=== PATIENT | female | born 1975 | race Caucasian/White ===

== ENCOUNTER 2025-02-24 05:11 | Emergency (ER) | payer OTHER, SELFPAY ==
[2025-02-24] VITALS (8 sets, daily range): BP systolic 107–125; BP diastolic 57–90
--- NOTE | 2025-02-24 07:27 | EDRN ---
waiting for a provider to see the pt
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
[2025-02-24] MEDS: DECADRON 10 MG PO (09:30)
--- NOTE | 2025-02-24 11:09 | EDRN ---
this RN has called pharmacy 3 times to send a albuterol inhaler, per pharmacy they are tubing inhaler now
--- NOTE | 2025-02-24 11:18 | EDRN ---
pharmacy still has not sent albuterol inhaler, this RN has reached out to respiratory
== END 2025-02-24 11:48 | disposition home or self-care (01) ==
LOC: EMR 05:11
PROVIDERS: EMERGENCY PHYSICIAN Student in an Organized Health Care Education/Training Program
DX: J45.901 Unspecified asthma with (acute) exacerbation (principal); F90.9 Attention-deficit hyperactivity disorder, unspecified type; Z79.899 Other long term (current) drug therapy; Z90.49 Acquired absence of other specified parts of digestive tract
CPT/HCPCS: 99283; 94640; 71046